=== PATIENT | female | born 2000 | race Caucasian/White ===

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

== ENCOUNTER 2018-11-22 20:16 | Emergency (ER) | payer MEDICAID ==
[~2018-11-22] VITALS: Ht 162.6 cm; Wt 150.1 kg
[2018-11-22 23:24] LABS: BASOPHIL % 0.4 % (0-2); PLATELET COUNT 385 x10^3mcL (130-400); RED CELL DISTRIBUTION WIDTH 14.1 % (11.5-14.5)
[2018-11-23 01:32] VITALS: BP 136/82
== END 2018-11-23 01:32 | disposition home or self-care (01) ==
LOC: ED 20:16
PROVIDERS: Emergency Medicine
DX: N93.8 Other specified abnormal uterine and vaginal bleeding (principal); R42 Dizziness and giddiness
CPT/HCPCS: 36415